=== PATIENT | female | born 1970 | race Caucasian/White ===

== ENCOUNTER 2017-01-08 05:38 | Emergency (ER) | payer BC, OTHER ==
[~2017-01-08] VITALS: Ht 152.4 cm; Wt 125.0 kg
[2017-01-08 06:02] VITALS: Ht 152.4 cm; Wt 125.0 kg
[2017-01-08] MEDS ORDERED: SOD CHLORIDE 0.9% 1,000 ML IV ONE (06:30)
--- NOTE | 2017-01-08 06:41 | ERD ---
ER Documentation Chief Complaint Date/Time DATE: 01/08/17 TIME: 06:36 Chief Complaint bilatera breast pain,back pain, abdominal cramping HPI 46-year-old female is complaining of widespread muscle aches 3 days. She has pain in her shoulder, upper arm, chest wall, and abdominal wall. Patient stated that she goes to the gym 5 days a week, which involves cardio and weight machines. She stopped going 5 days ago. She also started taking diet supplement Tejocote root 5 days ago to help with her weight loss. Patient report 1 episode of loose stool this morning. She has a history of diabetes and hypertension. She is taking Levemir, benazepril, atorvastatin. Denies fever or chills. Denies nausea, vomiting, diarrhea. Denies dark color urine. ROS All systems reviewed and are negative except as per history of present illness. Medications Home Meds Active Scripts Ibuprofen* (Motrin*) 600 Mg Tab, 600 MG PO Q6H Y for PAIN AND OR ELEVATED TEMP, #30 TAB Prov:VEL FATIMA [employer] 01/08/17 PMhx/Soc Medical and Surgical Hx: pt denies Surgical Hx Anesthesia Reaction: No Hx Neurological Disorder: No Hx Respiratory Disorders: No Hx Cardiac Disorders: No Hx Psychiatric Problems: No Hx Miscellaneous Medical Probl: Yes (DM) Hx Alcohol Use: No Hx Substance Use: No Hx Tobacco Use: No Smoking Status: Never smoker Physical Exam Vitals Vital Signs Date Time Temp Pulse Resp B/P Pulse Ox O2 Delivery O2 Flow Rate FiO2 01/08/17 09:54 98.3 80 20 123/68 98 01/08/17 06:02 97.7 87 20 138/72 97 Physical Exam General: Well-developed, well-nourished, conscious and coherent, in no distress Skin: Warm and dry without rash, good texture and turgor Head: Normocephalic without evidence of trauma Eyes: Sclera and conjunctivae normal; pupils equal, round, and reactive to light; extraocular movements are intact Neck: Supple without meningismus or adenopathy. Carotids are equal. Trachea midline. No bruits or JVD Chest: Normal AP diameter. Good expansion without retractions. Nontender. Lungs are clear to auscultate bilaterally with good tidal volume. Mild, diffuse chest wall tenderness. Heart: Regular rate and rhythm. No murmur, rub, or gallops heard Abdomen: Soft and nontender without masses, guarding, or rebound. Bowel sounds are active. No hepatosplenomegaly Back: Without spinal or CVA tenderness. Mild, diffuse tenderness in the upper trapezius and deltoid. Pelvis: Nontender to palpation and stable to compression Extremities: Full range of motion. Good strength bilaterally. No clubbing, cyanosis, or edema. Peripheral pulses are intact. Sensation intact Neuro: Alert and oriented 4, GCS 15. Cranial nerves grossly intact. Motor and sensory exams nonfocal. Moves all extremities. Speech clear. Gait normal Result Diagram: 01/08/17 0640 01/08/17 0640 Results 24 hrs Laboratory Tests Test 01/08/17 06:40 White Blood Count 10.110^3/ul Red Blood Count 4.6410^6/ul Hemoglobin 14.2g/dl Hematocrit 41.9% Mean Corpuscular Volume 90.3fl Mean Corpuscular Hemoglobin 30.6pg Mean Corpuscular Hemoglobin Concent 33.9g/dl Red Cell Distribution Width 13.0% Platelet Count 00817^3/UL Mean Platelet Volume 10.0fl Neutrophils % 71.0% Lymphocytes % 16.8% Monocytes % 10.3% Eosinophils % 1.2% Basophils % 0.4% Nucleated Red Blood Cells % 0.0/100WBC Neutrophils # 7.210^3/ul Lymphocytes # 1.710^3/ul Monocytes # 1.010^3/ul Eosinophils # 0.110^3/ul Basophils # 0.010^3/ul Nucleated Red Blood Cells # 0.010^3/ul Prothrombin Time 11.2Sec Prothrombin Time Ratio 0.9 INR International Normalized Ratio 0.81 Activated Partial Thromboplast Time 28.2Sec Urine Color LT. YELLOW Urine Clarity CLEAR Urine pH 5.5 Urine Specific [place] <=1.005 Urine Ketones NEGATIVE Urine Nitrite NEGATIVE Urine Bilirubin NEGATIVE Urine Urobilinogen 0.2 E.U./dL Urine Leukocyte Esterase NEGATIVE Urine Hemoglobin NEGATIVE Urine Glucose 1%% Urine Total Protein NEGATIVE Sodium Level 137mmol/L Potassium Level 4.2mmol/L Chloride Level 100mmol/L Carbon Dioxide Level 29mmol/L Anion Gap 12 Blood Urea Nitrogen 12mg/dl Creatinine 0.68mg/dl Glucose Level 218mg/dl Calcium Level 9.4mg/dl Total Bilirubin 0.3mg/dl Direct Bilirubin 0.00mg/dl Indirect Bilirubin 0.3mg/dl Aspartate Amino Transf (AST/SGOT) 18IU/L Alanine Aminotransferase (ALT/SGPT) 42IU/L Alkaline Phosphatase 83IU/L Creatinine Kinase MB (Mass) 0.62ng/ml Total Protein 7.4g/dl Albumin 4.6g/dl Globulin 2.80g/dl Albumin/Globulin Ratio 1.64 Lipase 230U/L Current Medications Medications (Trade) Dose Ordered Sig/[place] Route PRN Reason Start Time Stop Time Status Last Admin Dose Admin Sodium Chloride (NS) 1,000 ml @ 1,000 mls/hr Q1H ONCE IV 01/08/17 06:30 01/08/17 07:29 DC 01/08/17 06:46 Procedures/MDM Well-appearing 46-year-old female presented ED was muscle pain 3 days. CBC, CMP, lipase, CK-MB, PT/PTT, and UA are all negative. No sign of rhabdomyolysis. Patient is taking atorvastatin, I suspect her muscle pain is due to the statin medication. Advised patient to discontinue the atorvastatin and follow-up with her PCP. Normal saline 1 L bolus given to the patient in the ED. Patient appears well, stable for discharge and outpatient management. Medical decision making shared with patient and family. Education provided to patient and family. Patient and family expressed understanding of the plan. Medications on discharge: None. Follow-up: Primary care provider in 2-3 days or return to ED if worse. Departure Diagnosis: Primary Impression: Muscle ache Condition: Stable VEL FATIMA NP Jan 08, 2017 06:41
[2017-01-08 07:22] LABS: ADD SCAN DIFF NO
[2017-01-08 07:26] LABS: BASOPHILS % 0.4 % (0.0-2.0); EOSINOPHILS # 0.1 10^3/ul (0.0-0.5); EOSINOPHILS % 1.2 % (0.0-7.0); HEMATOCRIT 41.9 % (37.0-47.0); HEMOGLOBIN 14.2 g/dl (12.0-16.0); LYMPHOCYTES # 1.7 10^3/ul (0.8-2.9); LYMPHOCYTES % 16.8 % (15.0-51.0); MEAN CORPUSCULAR HEMOGLOBIN 30.6 pg (29.0-33.0); MEAN CORPUSCULAR HGB CONC 33.9 g/dl (32.0-37.0); MEAN CORPUSCULAR VOLUME 90.3 fl (82.0-101.0); MONOCYTES % 10.3 % (0.0-11.0); NEUTROPHIL # 7.2 10^3/ul (1.6-7.5); PLATELET COUNT 308 10^3/UL (140-415); RED BLOOD COUNT 4.64 10^6/ul (4.20-5.40); WHITE BLOOD COUNT 10.1 10^3/ul (4.8-10.8)
[2017-01-08 07:40] LABS: ADD UMIC NO; UR BILIRUBIN (Dip) NEGATIVE (NEGATIVE); UR BLOOD (Dip) NEGATIVE (NEGATIVE); UR CLARITY CLEAR (CLEAR); UR COLOR LT. YELLOW (YELLOW); UR KETONES (Dip) NEGATIVE (NEGATIVE); UR LEUKOCYTE ESTERASE (Dip) NEGATIVE (NEGATIVE); UR NITRITE (Dip) NEGATIVE (NEGATIVE); UR TOTAL PROTEIN (Dip) NEGATIVE (NEGATIVE); UR UROBILINOGEN (Dip) 0.2 E.U./dL (0.1-1.0)
[2017-01-08 07:43] LABS: INR 0.81; PROTIME 11.2 Sec (12.2-14.2); PT RATIO 0.9
[2017-01-08 07:44] LABS: PARTIAL THROMBOPLASTIN TIME 28.2 Sec (25.0-35.0)
[2017-01-08 07:47] LABS: ALBUMIN 4.6 g/dl (3.3-4.9); ALBUMIN/GLOBULIN RATIO 1.64; BILIRUBIN,INDIRECT 0.3 mg/dl (0-1.1); BILIRUBIN,TOTAL 0.3 mg/dl (0.2-1.3); CALCIUM 9.4 mg/dl (8.4-10.2); CREATININE 0.68 mg/dl (0.44-1.00); POTASSIUM 4.2 mmol/L (3.5-5.1); TOTAL PROTEIN 7.4 g/dl (6.1-8.1)
[2017-01-08 07:55] LABS: CK-MB 0.62 ng/ml (0.0-2.4)
[2017-01-08 08:01] LABS: UR GLUCOSE (Dip) 1% % (NEGATIVE)
[2017-01-08] MEDS ORDERED: IBUP-1542 PO (08:43)
[2017-01-08 09:54] VITALS: BP 123/68; PULSE 80; RESP 20; TEMP 98.3
== END 2017-01-08 09:57 | disposition home or self-care (01) ==
LOC: E/R 05:38 → FTE 09:57
DX: M79.1 Myalgia (principal); E11.9 Type 2 diabetes mellitus without complications; R07.89 Other chest pain
CPT/HCPCS: 36415; 80053; 81003; 82553; 83690; 85025; 85610; 85730; 96360; 99284; J7030